=== PATIENT | male | born 2000 | race Caucasian/White ===

== ENCOUNTER 2023-04-30 02:49 | Emergency (ER) | payer OTHER ==
[~2023-04-30] VITALS: Ht 172.7 cm; Wt 86.3 kg
[2023-04-30 03:12] VITALS: RESP 14; O2SAT 98
[2023-04-30 03:13] VITALS: PULSE 100
[2023-04-30 04:09] LABS: HEMATOCRIT. 48.1 % (42.0-52.0); HEMOGLOBIN. 16.4 g/dL (14.0-18.0); MEAN CORPUSCULAR HEMOGLOBIN 30.2 pg (28.0-32.0); MEAN CORPUSCULAR HGB CONC 34.1 g/dL (31.0-37.0); MEAN CORPUSCULAR VOLUME 88.6 fL (80.0-94.0); MEAN PLATELET VOLUME 9.4 fl (7.4-10.4); PLATELET 235 x1000/uL (130-400); RED BLOOD CELL COUNT 5.43 mill/uL (4.7-6.1); RED CELL DISTRIBUTION WIDTH 13.4 % (11.6-14.6); WHITE BLOOD COUNT 18.2 x1000/uL (4.5-11.0)
[2023-04-30 04:12] LABS: DIFFERENTIAL COMMENT 1
[2023-04-30 04:46] LABS: PLATELET ESTIMATE NORMAL
[2023-04-30 05:00] LABS: ALANINE AMINOTRANSFERASE 14 IU/L (10-49); ASPARTATE AMINOTRANSFERASE 16 IU/L (<34); BILIRUBIN TOTAL 2.7 mg/dL (0.1-1.0); CALCIUM 9.8 mg/dL (8.7-10.4); CARBON DIOXIDE 28 mEq/L (21-32); CHLORIDE 104 mEq/L (98-107); CREATININE 0.9 mg/dL (0.6-1.3); GLUCOSE 126 mg/dL (70-105); PROTEIN TOTAL 8.1 g/dL (6.0-8.3); SODIUM 140 mEq/L (136-145); UREA NITROGEN BLOOD 19 mg/dL (9-23)
[2023-04-30 06:05] VITALS: TEMP 98
[2023-04-30] MEDS: ONDANSETRON 4MG ODT PO STA (06:05)
[2023-04-30] MEDS: ACETAMINOPHEN 325MG TABLET PO STA (06:05)
[2023-04-30] MEDS ORDERED: IBUP-2028 PO (08:12)
== END 2023-04-30 08:30 | disposition home or self-care (01) ==
LOC: ER 02:49
DX: R10.13 Epigastric pain (principal); E80.7 Disorder of bilirubin metabolism, unspecified
CPT/HCPCS: 99285; 76705; 80053; 85025; 36415; Q0162